=== PATIENT | female | born 1990 | race Caucasian/White ===

== ENCOUNTER → 2016-03-08 | Outpatient (CLI) | payer OTHER ==
--- NOTE | 2016-03-08 13:38 | REP ---
OBSTETRIC SONOGRAPHY: HISTORY: Supervision of followup anatomy spine. FINDINGS: Scanning through the gravid uterus demonstrates a viable single intrauterine gestation in a breech lie. motion is observed and heart rate is recorded at 136 beats per minute. An anterior grade 0 placenta is seen without evidence of previa or abruption. Amniotic fluid is subjectively normal. Closed cervical length is 3.5 cm. No extrauterine abnormality is observed. There has been appropriate interval growth. No anomaly is seen. The following anatomic structures are identified today and felt to be unremarkable: cranium, choroid plexus, cavum, cerebellum and posterior fossa, face and profile, lungs, four chamber heart with left and right ventricular outflow tract views, diaphragm, left sided stomach, abdominal wall cord insertion, three vessel umbilical cord, kidneys and bladder, spine, upper and lower extremities. Biometry chart: BPD 5.4 cm = 22 weeks 3 days Head circumference 20.3 cm = 22 weeks 3 days Abdominal circumference 19.2 cm = 24 weeks 0 days Femur length 4.0 cm = 22 weeks 6 days Humeral length 3.9 cm = 23 weeks 4 days Cerebellar diameter 2.5 cm = 22 weeks 4 days HC/AC ratio normal 1.05. Cephalic index normal 0.73. Estimated weight 584 grams, 1 pound 4 ounces, 79th percentile for 22 weeks 2 days. IMPRESSION: Viable single intrauterine gestation at 22 weeks 4 days by today's composite sonographic criteria. Expected gestational age estimate based on prior sonography is 22 weeks 2 days. GLEN by prior sonography July 10, 2016. There is evidence of nuchal cord on today's imaging. Signed by Joe Wild MD 03/08/2016 04:34 P
== END ==
LOC: M SMT 07:58
PROVIDERS: ATTEND Advanced Practice Midwife
DX: Z34.02 Encounter for supervision of normal first pregnancy, second trimester (principal)

== ENCOUNTER → 2016-03-30 | Outpatient (CLI) | payer OTHER ==
[2016-03-30 17:54] LABS: BASO # 0.1 K/mm3 (0.0-0.2); BASO % 0.7 % (0.0-1.0); EOS # 0.1 K/mm3 (0.0-0.50); LARGE UNSTAINED CELL # 0.1 K/mm3 (0.0-0.4); LARGE UNSTAINED CELL % 0.6 % (0.0-4.0); LYMPH # 1.2 K/mm3 (1.5-6.5); LYMPH % 11.4 % (24.0-44.0); MEAN CORPUSCULAR HEMOGLOBIN 31.1 pg (27.0-33.0); MEAN CORPUSCULAR HGB CONC 33.7 g/dl (32.0-36.5); MEAN CORPUSCULAR VOLUME 92.3 fl (80.0-96.0); MONO # 0.5 K/mm3 (0.0-0.8); MONO % 4.6 % (0.0-5.0); NEUTROPHILS # 8.4 K/mm3 (1.8-7.7); NEUTROPHILS % 81.7 % (36.0-66.0); PLATELET COUNT, AUTOMATED 217 k/mm3 (150-450); RED CELL DISTRIBUTION WIDTH 13.7 % (11.5-14.5); WHITE BLOOD COUNT 10.3 K/mm3 (4.0-10.0)
== END ==
LOC: M SMT 13:07
PROVIDERS: ATTEND Advanced Practice Midwife
DX: Z34.83 Encounter for supervision of other normal pregnancy, third trimester (principal)

== ENCOUNTER → 2016-06-14 | Outpatient (REF) | payer OTHER | LOC: M LAB REF 17:16 | PROVIDERS: ATTEND Obstetrics & Gynecology | DX: Z34.83 Encounter for supervision of other normal pregnancy, third trimester (principal) ==

== ENCOUNTER 2016-07-07 20:46 | Inpatient (IN) | payer OTHER ==
[~2016-07-07] VITALS: Ht 170.2 cm; Wt 70.0 kg
[2016-07-07 20:58] VITALS: BP 123/76
--- NOTE | 2016-07-07 21:31 | HPE ---
DATE OF ADMISSION: 07/07/2016 Ave is a 25-year-old 1, para 0 at 39-4/7 weeks gestation with an estimated date of confinement (EDC) of 07/10/2016 based on last normal menstrual period and confirmed by first trimester ultrasound. She presents to labor and delivery today with a report of onset of uncomfortable contractions that started at approximately 1 o'clock in the morning this morning and have become much closer together and more uncomfortable throughout the day and evening. She does deny leakage of fluid. She has had some scant bloody show and her fetus has been active. care initiated at [facility] in the first trimester. course has been uncomplicated. OBSTETRICAL HISTORY: Primigravida. OB LABS: Blood type is A+, antibody screen negative, rubella immune, VDRL nonreactive. Urine culture: No growth. HIV negative. Hepatitis C antibody negative. Gonorrhea and chlamydia negative. Her quad screen was negative. Gestational diabetic screening 110. Her GBS is negative. PAST MEDICAL HISTORY: Childhood varicella. SURGERIES: Dental implants. FAMILY HISTORY: Hypertension, autism. SOCIAL HISTORY: The patient is . Her is bedside, and he is very supportive. She is a nonsmoker. Denies alcohol and drug use. No history of any sexually transmitted infections and denies history of abuse physical, sexual and emotional. ALLERGIES: No known drug allergies. CURRENT MEDICATIONS: Include vitamin. OBJECTIVE: Temperature 98.5, pulse 83, respirations 18, blood pressure is 123/76. heart rate is 130 with moderate variability, positive accelerations, no decelerations observed. She is yusra approximately every 2-5 minutes. Sterile vaginal exam: 5 cm dilated, 100% effaced, 0 station, bulging bag of water, mid position and soft. ASSESSMENT: Intrauterine at 39-4/7 weeks. heart rate category 1, active labor. PLAN: Admit the patient to labor and delivery, labs, out of bed ad robert, she does desire physiological labor. Encourage ambulation and out of bed positions. IV saline lock. I do anticipate continued progress and a normal spontaneous vaginal delivery.
[2016-07-07 22:02] VITALS: BP 110/65
[2016-07-07 22:22] LABS: MEAN CORPUSCULAR HEMOGLOBIN 32.1 pg (27.0-33.0); MEAN CORPUSCULAR HGB CONC 34.6 g/dl (32.0-36.5); MEAN CORPUSCULAR VOLUME 92.7 fl (80.0-96.0); RED CELL DISTRIBUTION WIDTH 12.5 % (11.5-14.5); WHITE BLOOD COUNT 8.9 K/mm3 (4.0-10.0)
[2016-07-07] MEDS ORDERED: PRENTAB9 PO (23:01)
[2016-07-07 23:13] VITALS: BP 127/79
[2016-07-08] VITALS (43 sets, daily range): BP systolic 74–133; BP diastolic 44–76
[2016-07-08] MEDS ORDERED: FENTANYL 2MCG/ML ROPIVACAINE 0.2% IN 0.9% NACL 200ML IVBAG As Ordered ONE (01:25)
[2016-07-08] MEDS ORDERED: EPIDURAL/PCA KEYS XX PRN (02:14)
[2016-07-08] MEDS ORDERED: EPIDURAL COMMENT XX SCH (02:14)
[2016-07-08] MEDS ORDERED: diphenhydrAMINE INJ 50MG/ML VIAL (J1200) IV PRN (02:14)
[2016-07-08] MEDS ORDERED: ONDANSETRON 4MG/2ML VIAL (J2405) IV PRN (02:14)
[2016-07-08] MEDS ORDERED: NALOXONE INJ 0.4 MG/1 ML VIAL (J2310) IV PRN (02:14)
[2016-07-08] MEDS ORDERED: LACTATED RINGER'S 1000 ML IV PRN (02:14)
[2016-07-08] MEDS ORDERED: ePHEDrine SULFATE 25 MG/5 ML(5MG/ML) SYRINGE IV PRN (02:14)
[2016-07-08] MEDS ORDERED: FENTANYL/ROPIVACAINE/NACL BAG 200 ML EPIDURAL SCH (02:14)
[2016-07-08] MEDS ORDERED: REFRIGERATOR IV KEYS XX PRN (02:14)
[2016-07-08] MEDS ORDERED: OXYTOCIN 30 UNITS IN 0.9% NaCl 500ML IV BAG (J2590) As Ordered ONE ×2 (04:14→16:09)
[2016-07-08] MEDS ORDERED: OXYTOCIN DRIP 30 UNITS in APPROPRIATE DILUENT 1 EA IV SCH ×2 (04:15→08:06)
[2016-07-08] MEDS: DIBUCAINE 1% OINTMENT 30GM TOP SCH ×4 (08:00→20:11)
[2016-07-08] MEDS ORDERED: METHYLERGONOVINE MALEATE 0.2 MG TAB PO PRN (08:15)
[2016-07-08] MEDS ORDERED: MEASLES,MUMPS,RUBELLA VACCINE INJ (MMR-II) (90707) SC SCH (08:15)
[2016-07-08] MEDS ORDERED: LIDOCAINE 1% MDV INJ 50 ML VIAL INFIL ONE (08:15)
[2016-07-08] MEDS ORDERED: RHOGAM 300 MCG (1500 IU) INJ (J2790) IM SCH (08:15)
[2016-07-08] MEDS ORDERED: ANUSOL HC CREAM 30GM TOP PRN (08:15)
--- NOTE | 2016-07-08 08:34 | DN ---
DATE OF DELIVERY: 07/08/2016 Ave is a 25-year-old 1, para 1-0-0-1 now who was admitted to labor and delivery in active labor. She did utilize an epidural for her labor coping. She had assisted rupture of membranes for a small amount of clear odorless fluid. She did progress to full dilation at 0523 hours. She did push to a spontaneous vaginal delivery of a live male in OA position with restitution to LOT position at 0705 hours. There was no nuchal cord. The shoulders delivered with gentle downward guidance and the corpus immediately followed. Noted during second stage there was a significant amount of bleeding from vaginal vessel of approximately 300 mL during the second stage observed. was then placed on maternal abdomen crying and active. His mouth and nares were bulb suctioned. Cord was clamped times two and cut by the father of the baby. There was a spontaneous expulsion of an intact placenta with three-vessel cord by Luna mechanism at 0709 hours. Uterine hemostasis was achieved with uterine fundal massage and IV Pitocin rapid infusion. Perineum and vagina were inspected in detail by myself as well as Dr. Cerrato and noted to have a second-degree midline laceration with several bleeding blood vessels. The laceration was infiltrated with 1% lidocaine and then repaired by Dr. Cerrato #3-0 Rapide. Also of note, there was a right hematoma on the vaginal canal that was drained by Dr. Cerrato. Total estimated blood loss about 800 mL. male, score of 9 and 9, weight 3454 grams, 7 pounds 10 ounces. The family have named their son Kvng Paulson. Mom plans to breastfeed. At the close of delivery lap counts, needle counts and instrument counts were correct and verified.
[2016-07-08] MEDS: IBUPROFEN 600 MG TAB PO SCH ×3 (09:01→20:11)
[2016-07-08] MEDS: PRENATAL VITAMIN TAB PO SCH (10:51)
[2016-07-08] MEDS: FERROUS GLUCONATE 324 MG TAB PO SCH ×3 (10:51→21:21)
[2016-07-08] MEDS: ACETAMINOPHEN 500 MG TAB PO PRN ×2 (12:03→18:38)
[2016-07-08] MEDS ORDERED: METHYLERGONOVINE MALEATE 0.2 MG/ML VIAL (J2210) IV STA (16:09)
[2016-07-08] MEDS ORDERED: OXYTOCIN INJ 10 UNITS/ML VIAL (J2590) IV STA (16:09)
[2016-07-08 16:38] LABS: MEAN CORPUSCULAR HEMOGLOBIN 31.3 pg (27.0-33.0); MEAN CORPUSCULAR HGB CONC 34.5 g/dl (32.0-36.5); MEAN CORPUSCULAR VOLUME 90.9 fl (80.0-96.0); RED CELL DISTRIBUTION WIDTH 12.9 % (11.5-14.5); WHITE BLOOD COUNT 11.9 K/mm3 (4.0-10.0)
[2016-07-08] MEDS: LR 1,000 ML IV SCH (17:30)
[2016-07-08] MEDS: DOCUSATE SODIUM 100 MG CAP PO PRN (18:37)
[2016-07-09] MEDS: LR 1,000 ML IV SCH (01:41)
[2016-07-09] MEDS: DIBUCAINE 1% OINTMENT 30GM TOP SCH ×5 (04:37→16:00)
[2016-07-09] MEDS: IBUPROFEN 600 MG TAB PO SCH ×3 (04:37→19:00)
[2016-07-09 05:51] VITALS: BP 97/55
[2016-07-09 06:31] LABS: MEAN CORPUSCULAR HEMOGLOBIN 31.7 pg (27.0-33.0); MEAN CORPUSCULAR HGB CONC 34.4 g/dl (32.0-36.5); MEAN CORPUSCULAR VOLUME 92.1 fl (80.0-96.0); WHITE BLOOD COUNT 8.1 K/mm3 (4.0-10.0)
[2016-07-09] MEDS: FERROUS GLUCONATE 324 MG TAB PO SCH ×2 (10:37→19:00)
[2016-07-09] MEDS: PRENATAL VITAMIN TAB PO SCH (10:37)
[2016-07-09 18:11] VITALS: BP 108/61
[2016-07-09] MEDS: DOCUSATE SODIUM 100 MG CAP PO PRN (21:50)
[2016-07-10] MEDS: FERROUS GLUCONATE 324 MG TAB PO SCH ×2 (00:59→08:50)
[2016-07-10] MEDS: IBUPROFEN 600 MG TAB PO SCH ×2 (01:00→08:51)
[2016-07-10 05:43] VITALS: BP 99/51
[2016-07-10] MEDS: PRENATAL VITAMIN TAB PO SCH (08:51)
[2016-07-10] MEDS ORDERED: IBUP-1114 PO (09:15)
[2016-07-10] MEDS ORDERED: DIBU1OI TOP (09:16)
[2016-07-10] MEDS ORDERED: COLA100C3 PO (09:16)
[2016-07-10] MEDS ORDERED: ACET50TA PO (09:17)
== END 2016-07-10 13:10 | disposition home or self-care (01) | DRG 775 ==
LOC: M LDO 20:46 → M LDI 21:14 → M OBS 07-08 09:20
PROVIDERS: ADMIT Advanced Practice Midwife; ATTEND Advanced Practice Midwife
PROC: 10E0XZZ Delivery of Products of Conception, External Approach (ICD-10-PCS; principal; 2016-07-08)
PROC: 0KQM0ZZ Repair Perineum Muscle, Open Approach (ICD-10-PCS; 2016-07-08)
DX: O70.1 Second degree perineal laceration during delivery (principal); O71.7 Obstetric hematoma of pelvis; Z37.0 Single live birth; Z3A.39 39 weeks gestation of pregnancy

== ENCOUNTER → 2017-08-29 | Outpatient (REF) | payer OTHER | LOC: M LAB REF 13:25 | DX: Z12.4 Encounter for screening for malignant neoplasm of cervix (principal) ==

== ENCOUNTER → 2018-10-15 | Outpatient (CLI) | payer OTHER ==
[~2018-10-15] MED LIST: COLA100C5 PO; DIBU10OI TOP; IBUP-1114 PO; MAPA500T2 PO; PRENTAB9 PO
[2018-10-15 13:25] LABS: BASO % 0.3 % (0.0-1.0); EOS % 0.4 % (0.0-3.0); HEMATOCRIT 39.8 % (36.0-47.0); HEMOGLOBIN 13.8 g/dl (12.0-15.5); LYMPH # 1.1 10^3/uL (1.5-6.5); LYMPH % 15.9 % (24.0-44.0); MEAN CORPUSCULAR HEMOGLOBIN 30.5 pg (27.0-33.0); MEAN CORPUSCULAR HGB CONC 34.7 g/dl (32.0-36.5); MEAN CORPUSCULAR VOLUME 88.1 fl (80.0-96.0); MONO # 0.5 10^3/uL (0.0-0.8); MONO % 6.7 % (0.0-5.0); NEUTROPHILS # 5.2 10^3/uL (1.8-7.7); NEUTROPHILS % 76.3 % (36.0-66.0); PLATELET COUNT, AUTOMATED 236 10^3/uL (150-450); RED BLOOD COUNT 4.52 10^6/uL (4.00-5.40); WHITE BLOOD COUNT 6.9 10^3/uL (4.0-10.0)
[2018-10-15 14:15] LABS: HEPATITIS C VIRUS ABY INDEX 0.1 INDEX (<0.8); HIV 1&2 SCREEN CENTAUR NEGATIVE (NEGATIVE); RUBELLA IgG QUALITATIVE IMMUNE (IMMUNE)
[2018-10-15 14:55] LABS: CHLAMYDIA DNA AMPLIFICATION NEGATIVE (NEGATIVE); GC DNA AMPLIFICATION NEGATIVE (NEGATIVE)
== END ==
LOC: M SMT 10:29
PROVIDERS: ATTEND Advanced Practice Midwife
DX: Z34.81 Encounter for supervision of other normal pregnancy, first trimester (principal); Z3A.09 9 weeks gestation of pregnancy

== ENCOUNTER → 2018-12-04 | Outpatient (CLI) | payer OTHER | LOC: M SMT 14:08 | PROVIDERS: ATTEND Obstetrics & Gynecology | DX: Z13.79 Encounter for other screening for genetic and chromosomal anomalies (principal) ==

== ENCOUNTER → 2018-12-24 | Outpatient (CLI) | payer OTHER ==
--- NOTE | 2018-12-24 19:25 | REP ---
Clinical: Anatomical evaluation. Comparison: None . Findings: Examination demonstrates a single live intrauterine in cephalic presentation. motion is identified by technologist. Placenta is noted posterior and grade a zero without evidence for placenta previa or abruption. Amniotic fluid volume is normal. Cervix measures 3.7 cm in length and appears closed. No evidence for nuchal cord. Gestational age by LMP 18 weeks 5 days with GLEN 05/22/2019 . Gestational age by current measurements 90 weeks 1 day with GLEN 05/19/2019 . FHR equals 143 beats per minute. BPD 4.6 cm 19 weeks 5 days HC 16.2 cm 19 weeks 0 days AC 13.2 cm 18 weeks 5 days FL 3.0 cm 19 weeks 1 day HL 2.8 cm 19 weeks 0 days HC/AC ratio 1.23 Estimated weight 264 grams ( 54 percentile). Anatomical assessment demonstrates normal structures including cranium, choroid plexus, cavum, cerebellum/posterior fossa, nose/lips, lungs, cardiac ventricular outflow tracts, diaphragm, stomach, cord insertion/three-vessel cord, kidneys/bladder, spine, and extremities. Impression: 1. Single live intrauterine in cephalic presentation demonstrating appropriate interval growth. 2. Limited evaluation of the facial profile and four-chamber heart views. Electronically Signed by Claude Quiroz MD 12/24/2018 07:17 P
== END ==
LOC: M RAD 17:37
PROVIDERS: ATTEND Obstetrics & Gynecology
DX: Z34.82 Encounter for supervision of other normal pregnancy, second trimester (principal); Z36.89 Encounter for other specified antenatal screening; Z3A.18 18 weeks gestation of pregnancy

== ENCOUNTER → 2019-01-22 | Outpatient (CLI) | payer OTHER ==
--- NOTE | 2019-01-22 21:59 | REP ---
OB ULTRASOUND: Real-time sonographic evaluation of the gravid uterus performed. There is a single living intrauterine gestation, estimated gestational age 22 weeks 6 days, EDC 05/22/2019. Today's measurements indicate appropriate growth. BPD 59 mm = 24 weeks 0 days, 73rd percentile HC 217 mm = 23 weeks 5 days, 75th percentile AC 185 mm = 23 weeks 2 days, 58th percentile FL 42 mm = 23 weeks 5 days, 71st percentile HC/AC ratio 1.17, within normal range. Estimated weight 605 grams, 65th percentile. Cervix closed and measures 4.7 cm in length. heart rate 147 beats per minute. SEEN/GROSSLY UNREMARKABLE Lateral ventricles yes Posterior fossa yes Upper lip yes Four-chamber heart yes LVOT yes RVOT yes Stomach yes Cord insertion no Three vessel cord yes Kidneys yes Bladder yes Spine yes position: Vertex. Placenta: Posterior and grade 0 with no previa or abruption. Amniotic fluid: Within normal limits. Electronically Signed by Omar Trevizo MD 01/23/2019 03:46 P
== END ==
LOC: M RAD 17:08
PROVIDERS: ATTEND Advanced Practice Midwife
DX: Z34.82 Encounter for supervision of other normal pregnancy, second trimester (principal); Z3A.22 22 weeks gestation of pregnancy

== ENCOUNTER → 2019-04-23 | Outpatient (REF) | payer OTHER | LOC: M SFHCWAGY 16:54 | PROVIDERS: ATTEND Advanced Practice Midwife | DX: Z36.85 Encounter for antenatal screening for Streptococcus B (principal) ==

== ENCOUNTER 2019-05-14 01:48 | Inpatient (IN) | payer OTHER ==
[~2019-05-14] VITALS: Ht 170.2 cm; Wt 75.7 kg
[2019-05-14] VITALS (10 sets, daily range): BP systolic 106–132; BP diastolic 53–75
[2019-05-14] MEDS ORDERED: OXYTOCIN 30 UNITS IN 0.9% NaCl 500ML IV BAG (J2590) As Ordered ONE (02:49)
[2019-05-14 03:04] LABS: HEMATOCRIT 37.1 % (36.0-47.0); HEMOGLOBIN 12.8 g/dl (12.0-15.5); MEAN CORPUSCULAR HEMOGLOBIN 31.3 pg (27.0-33.0); MEAN CORPUSCULAR HGB CONC 34.5 g/dl (32.0-36.5); MEAN CORPUSCULAR VOLUME 90.7 fl (80.0-96.0); PLATELET COUNT, AUTOMATED 200 10^3/uL (150-450); RED BLOOD COUNT 4.09 10^6/uL (4.00-5.40); WHITE BLOOD COUNT 10.9 10^3/uL (4.0-10.0)
--- NOTE | 2019-05-14 03:40 | HPEPDOC ---
Obstetrical History & Physical General Date of Admission May 14, 2019 at 02:52 Primary Care Physician: TOMMY DOMINGUEZ CNM History of Present Illness Patient is a 28-year-old, at 39.1wk gestation who presents to L&D for assessment of labor. GLEN 05/20/2019. Care was established in the first trimester. has been complicated by history of hemorrhage. She complains of painful uterine contractions. She reports positive movement and bloody show. She denies leakage of fluid. Chief Complaint: Contractions, term Information Provided By: Patient Age: 28 : 2 Term: 1 Pre-term: 0 Abortions: 0 Livin Care Care: Good Care Dating Final EDC: May 20, 2019 Final EDC by: LMP LMP: Aug 13, 2018 EGA at Admission: 39.1 Antepartum Course Diagnos(e)s SIUP @ 39.1wk gestation, active labor. Height (inches): 67 Pre- weight (lbs.): 140 Admission Weight (lbs.): 178.8 Change in Weight (lbs.): 38.8 Past Medical History Past Obstetrical History : Past Obstetrical History: Primgravida Gestation: 39.5 (07/2016) Type of Delivery: Spontaneous Vaginal Del. Sex of : Male Weight of Infant (grams): 3459 Complications: Yes (PPH/vaginal hematoma) [employer] History: No pertinent history Past Medical History Medical History Varicose veins Surgical History: Other (Dental implants and oral bone grafting) Family History Significant Family History: Cancer (Melanoma, breast cancer) Social History Marital Status: Family situation: Spouse/partner home Psychosocial History: No pertinent psych hx * Smoker: non-smoker Alcohol: Denies Drugs: denies Abuse Violence Screening Have you been hit/kicked/slapp: No Have you been sexually assault: No Imunizations Tdap status: current Allergies Coded Allergies: No Known Allergies (Unverified , 07/07/16) Medications Scheduled Docusate Sodium (Colace) 100 Mg Cap, 100 MG PO DAILY for BOWEL CARE/CONSTIPATION No.137/Iron/Folic Acd ( Vitamin Tablet) 1 Tab Tab, 1 TAB PO DAILY Scheduled PRN Acetaminophen (Mapap) 500 Mg Tab, 1,000 MG PO Q6HP PRN for MILD PAIN (PS 1-4) Ibuprofen (Ibuprofen) 400 Mg Tab, 600 MG PO Q6HP PRN for PAIN SCALE 6-10 Physical Examination Physical Examination GENERAL: Alert and oriented times three. BREAST: . ABDOMEN: Gravid and non-tender to touch. FETUS: Is vertex (VTX) by sterile vaginal examination (SVE), fetus is vertex (VTX) by Eduardo. HEART RATE: Regular rate and rhythm. LUNGS: Clear to auscultation (CTA). EXTREMITIES: No edema. No clonus. Deep tendon reflexes (DTRs) + 2. Laboratory Data 24H LABS Laboratory Tests 2 05/14/19 02:57: Nucleated Red Blood Cells % (auto) 0.0 05/14/19 02:57: Serology Scanned Report Hepatitis B Testing CBC/BMP Laboratory Tests 05/14/19 02:57 Pertinent Laboratoy Data Blood Type: A+ RBC Antibody Screen: Negative HIV: Negative Hepatitis B: Negative Hepatitis C: Negative Rapid Plasma Reagin: Nonreactive Rubella: Immune Chlamydia/Gonorrhea: Negative Group B Streptococcus: Negative Quad Screen Test: Negative Glucose Tolerance Test: 100 Anatomy Ultrasound Ultrasound Date: Dec 24, 2018 Placenta Location: Posterior Normal Anatomy: Yes (Four champer heart and facial profile suboptimal) Placenta Previa: No Estimated Weight (grams): 264 (54%) Other Ultrasounds 10/15/2018-SIUP with CRL 22.4mm; 8.6wk. EDC cw LMP. Positive cardiac motion and yolk sac. [id number]. Placenta posterior without previa or abruption. AFV normal. Cervix 3.7cm. FHR 143. EFW 264g (54%). Facial profile and four chamber heart suboptimal. Vaginal Examination Dilation: 8 cm Effacement: 100% Station: -1 Cervical Consistency: Soft Cervical Position: Anterior Presentation: Cephalic presentation Position: Vertex (occiput) Assessment Heart Rate (FHR): 125 Variability: Moderate Accelerations: Positive Decelerations: None Tocometer Contractions: Yes Frequency: regular, every 2-5 min. Duration: less than 90 seconds Strength: palpated as moderate Assessment/Plan Assessment SIUP @ 39.1wk gestation. Active labor. FHR category 1. Plan Admit to L&D. Diet: clears. Group B Streptococcus (GBS) negative. Labs and intravenous (IV) per unit protocol. Counseled on Pitocin and augmentation of labor (IOL). Lactated Ringers (LR): Bolus if needed. Anesthesia consult per patient's request. Anticipate cervical change. Anticipate normal spontaneous delivery (). Active management of 3rd stage of labor. C-S as appropriate. TOMMY DOMINGUEZ CNM May 14, 2019 03:40
[2019-05-14] MEDS ORDERED: METHYLERGONOVINE MALEATE 0.2 MG/ML VIAL (J2210) As Ordered ONE (05:05)
[2019-05-14] MEDS ORDERED: OXYTOCIN DRIP 30 UNITS in IV 1 EA IV SCH (06:03)
--- NOTE | 2019-05-14 06:07 | DNPDOC ---
[facility] Delivery Note Delivery Note DATE OF DELIVERY: 05/14/2019 at 0455 PREDELIVERY DIAGNOSIS: 39-1/7 weeks' gestation and labor. POST DELIVERY DIAGNOSIS: Delivered. PROCEDURE: Spontaneous vaginal delivery. PROVIDER: Lani Jose, Student Nurse-Guidance Consultant assisted by Tommy Quevedo CNM, [place] ANESTHESIA: Local anesthesia for laceration repair. ESTIMATED BLOOD LOSS: 550 mL. FINDINGS: 7 pound 3 ounce (3250g) living male infant, Score 7/8, nuchal right hand. Sulcus and 1st degree laceration. History of PPH. DELIVERY SUMMARY: Patient is a 28-year-old 2 now para 2-0-0-2 who was admitted to labor and delivery for active labor. Patient labored without medication. AROM for moderate amount of clear fluid at 0347. She progressed to full dilation at 0420 and pushed to a viable male in the OA position with restitution to DWIGHT at 0455. A nuchal hand was noted. The anterior shoulder delivered with ease and the corpus immediately followed. The baby was placed on the maternal abdomen, [id number], active and crying. The umbilical cord was clamped times 2 after pulsation ceased and cut by the FOB. A 3-vessel cord was noted. The placenta delivered spontaneously and intact at 0459. Uterine hemostasis was achieved via rapid infusion of IV Pitocin at 999 ml/hr for 30 units in 500 ml of NS and fundal massage. The vagina, cervix and perineum were inspected and found to have a left sulcus laceration extending to a first degree perineal laceration. The area was anesthetized using 1% lidocaine and repaired via a 3.[address]-1. Due to brisk bleeding at laceration site, 0.2mg of Methergine was given IM as well. All counts of instruments and sponges were correct. Both mom and baby are in stable condition. They are naming their baby "Boyd." TOMMY QUEVEDO CNM May 14, 2019 06:07
[2019-05-14] MEDS ORDERED: ANUSOL HC CREAM 30GM TOP PRN (06:15)
[2019-05-14] MEDS ORDERED: LIDOCAINE 1% MDV 20ML VIAL INFIL ONE (06:15)
[2019-05-14] MEDS ORDERED: DOCUSATE SODIUM 100 MG CAP PO PRN (06:15)
[2019-05-14] MEDS ORDERED: DIBUCAINE 1% OINTMENT 30GM TOP PRN (06:15)
[2019-05-14] MEDS ORDERED: MEASLES,MUMPS,RUBELLA VACCINE INJ (MMR-II) (90707) SC SCH (06:15)
[2019-05-14] MEDS ORDERED: ACETAMINOPHEN TAB 650MG DOSE (2X325MG) PO PRN (06:15)
[2019-05-14] MEDS ORDERED: METHYLERGONOVINE MALEATE 0.2 MG TAB PO PRN (06:15)
[2019-05-14] MEDS ORDERED: RHOGAM 300 MCG (1500 IU) INJ (J2790) IM SCH (06:15)
[2019-05-14] MEDS ORDERED: METHYLERGONOVINE MALEATE 0.2 MG/ML VIAL (J2210) IM ONE (06:15)
[2019-05-14] MEDS ORDERED: IBUPROFEN 600 MG TAB PO PRN (06:15)
[2019-05-14] MEDS: IBUPROFEN 800 MG TAB PO PRN (07:23)
[2019-05-14] MEDS: PRENATAL VITAMINS CHEWABLE TABLET PO SCH (09:00)
[2019-05-14] MEDS: ACETAMINOPHEN 500 MG TAB PO PRN ×2 (11:44→19:31)
[2019-05-15] MEDS: IBUPROFEN 800 MG TAB PO PRN (03:32)
[2019-05-15 06:00] VITALS: BP 108/58
[2019-05-15] MEDS: PRENATAL VITAMINS CHEWABLE TABLET PO SCH (08:27)
[2019-05-15] MEDS: ACETAMINOPHEN 500 MG TAB PO PRN (10:32)
== END 2019-05-15 12:15 | disposition home or self-care (01) | DRG 807 ==
LOC: M LDO 01:48 → M LDI 02:52 → M OBS 09:25
PROVIDERS: ADMIT Advanced Practice Midwife; ATTEND Advanced Practice Midwife
PROC: 10E0XZZ Delivery of Products of Conception, External Approach (ICD-10-PCS; principal; 2019-05-14)
PROC: 0HQ9XZZ Repair Perineum Skin, External Approach (ICD-10-PCS; 2019-05-14)
DX: O70.0 First degree perineal laceration during delivery (principal); Z37.0 Single live birth; Z3A.39 39 weeks gestation of pregnancy; O69.81X0 Labor and delivery complicated by cord around neck, without compression, not applicable or unspecified

== ENCOUNTER → 2021-10-12 | Outpatient (CLI) | payer OTHER ==
[~2021-10-12] MED LIST changes: -DIBU10OI TOP; +DIBU28OI2 TOP
[2021-10-12 18:42] LABS: FOLLICLE STIMULATING HORMONE 8.8 mIU/mL; LUTEINIZING HORMONE 16.8 mIU/mL
[2021-10-14 12:07] LABS: DEHYDROEPIANDROSTERONE SULFATE 97.3 ug/dL (84.8-378.0); TESTOSTERONE FREE (DIRECT) 0.5 pg/mL (0.0-4.2)
== END ==
LOC: M WUC 13:03
PROVIDERS: ATTEND Nurse Practitioner Family
DX: R53.83 Other fatigue (principal); N95.1 Menopausal and female climacteric states; L65.8 Other specified nonscarring hair loss

== ENCOUNTER → 2023-02-17 | Outpatient (CLI) | payer OTHER ==
[2023-02-17 16:34] LABS: BASO % 0.6 % (0.0-1.0); EOS # 0.1 10^3/uL (0.0-0.5); HEMATOCRIT 35.8 % (36.0-47.0); HEMOGLOBIN 12.4 g/dl (12.0-15.5); LYMPH # 1.8 10^3/uL (1.5-5.0); LYMPH % 35.6 % (24.0-44.0); MEAN CORPUSCULAR HEMOGLOBIN 31.5 pg (27.0-33.0); MEAN CORPUSCULAR HGB CONC 34.6 g/dl (32.0-36.5); MEAN CORPUSCULAR VOLUME 90.9 fl (80.0-96.0); MONO # 0.3 10^3/uL (0.0-0.8); MONO % 5.9 % (2.0-8.0); NEUTROPHILS # 2.8 10^3/uL (1.5-8.5); NEUTROPHILS % 55.7 % (36.0-66.0); PLATELET COUNT, AUTOMATED 210 10^3/uL (150-450); RED BLOOD COUNT 3.94 10^6/uL (4.00-5.40); WHITE BLOOD COUNT 4.9 10^3/uL (4.0-10.0)
[2023-02-17 16:49] LABS: C REACTIVE PROTEIN QUANTITATIV < 0.40 MG/DL (<1.0); LIPASE 30 U/L (12-53)
[2023-02-17 16:50] LABS: ALKALINE PHOSPHATASE 33 U/L (46-116); ALT/SGPT 9 U/L (7.0-40); AST/SGOT < 8 U/L (<34); BILIRUBIN,TOTAL 0.6 MG/DL (0.3-1.2); BLOOD UREA NITROGEN 11 MG/DL (9-23); CARBON DIOXIDE LEVEL 32 MMOL/L (20-31); CHLORIDE LEVEL 103 MMOL/L (98-107); CREATININE FOR GFR 0.63 MG/DL (0.55-1.30); GLOMERULAR FILTRATION RATE > 60.0 (>60); GLUCOSE, FASTING 91 MG/DL (60-100); POTASSIUM SERUM 4.3 MMOL/L (3.5-5.1); SODIUM LEVEL 140 MMOL/L (136-145); TOTAL PROTEIN 6.9 G/DL (5.7-8.2)
== END ==
LOC: M PLALAB 14:28
PROVIDERS: ATTEND Family Medicine
DX: R11.2 Nausea with vomiting, unspecified (principal)